=== PATIENT | male | born 1970 | race Caucasian/White ===

== ENCOUNTER 2018-03-23 20:16 | Emergency (ER) | payer MEDICAID, OTHER ==
[~2018-03-23] VITALS: Ht 172.7 cm; Wt 117.9 kg
[2018-03-23 20:21] VITALS: BP 137/98
--- NOTE | 2018-03-23 20:23 | NUR ---
PT AMBULATORY TO ER LOBBY IN STABLE CONDITION.
--- NOTE | 2018-03-23 20:54 | NUR ---
PT TAKEN TO BED 12
--- NOTE | 2018-03-23 20:55 | NUR ---
PT BIB SELF FOR CONGESTION FEVER AND CHILLS. PT STATES HE HAS PRODUCTIVE COUGH. BL BS CLEAR THROUGH OUT, RR EVEN AND UNLABORED. PT LAYING IN BED, FAMILY AT BEDSIDE.
--- NOTE | 2018-03-23 21:31 | NUR ---
Dr. Valentine evaluating patient at bedside.
[2018-03-23] MEDS ORDERED: PHENYLEPHRINE 0.5% 15 ML BTL NS ONE (22:00)
--- NOTE | 2018-03-23 22:39 | NUR ---
Patient discharged with v/s stable. Written and verbal after care instructions given and explained. Patient alert, oriented and verbalized understanding of instructions. Ambulatory with steady gait. All questions addressed prior to discharge. ID band removed. Patient advised to follow up with PMD. Rx of PREDNISONE AND AZITHROMYCIN given. Patient educated on indication of medication including possible reaction and side effects. Opportunity to ask questions provided and answered.
[2018-03-23 22:40] VITALS: BP 133/79
== END 2018-03-23 22:39 | disposition home or self-care (01) ==
LOC: MED 20:16
DX: J20.9 Acute bronchitis, unspecified (principal); Z88.6 Allergy status to analgesic agent
CPT/HCPCS: 71045; 99283; Q0092

== ENCOUNTER 2019-06-17 13:03 | Emergency (ER) | payer MEDICAID ==
[~2019-06-17] VITALS: Ht 172.7 cm; Wt 130.8 kg
[2019-06-17 13:10] VITALS: BP 153/86
[2019-06-17] MEDS ORDERED: LIDOCAINE/EPI 1% 1:100000 20 ML VIAL INJ ONE (13:20)
--- NOTE | 2019-06-17 13:27 | NUR ---
C/O PAIN TO NODULE VS POSSIBLE ABSCESS BEHIND RIGHT EAR WORSE OVER LAST 3 DAYS---- DENIES INJURY
--- NOTE | 2019-06-17 13:28 | NUR ---
L&D TRAY AND LIDOCAINE AT BEDSIDE
[2019-06-17] MEDS ORDERED: CEPHALEXIN 500 MG CAP PO ONE (14:00)
[2019-06-17] MEDS ORDERED: SULFAMETH/TRIMETH DS 800/160MG 1 TAB PO ONE (14:00)
[2019-06-17] MEDS ORDERED: BACITRACIN OINT 500 UNITS/GM PKT TP ONE (14:00)
[2019-06-17 14:29] VITALS: BP 142/88
--- NOTE | 2019-06-17 14:30 | NUR ---
Patient discharged with v/s stable. Written and verbal after care instructions given and explained. Patient verbalized understanding. Ambulatory with steady gait. All questions addressed prior to discharge. Advised to follow up with PMD.
== END 2019-06-17 14:30 | disposition home or self-care (01) ==
LOC: MED 13:03
DX: L02.811 Cutaneous abscess of head [any part, except face] (principal); Z88.5 Allergy status to narcotic agent
CPT/HCPCS: 10060; 99284; J2001; 10061; 99283

== ENCOUNTER 2019-07-28 16:46 | Emergency (ER) | payer MEDICAID ==
[~2019-07-28] VITALS: Ht 172.7 cm; Wt 127.0 kg
[2019-07-28 16:51] VITALS: BP 153/98
--- NOTE | 2019-07-28 17:03 | NUR ---
PT AMBULATED TO ED BED 02
--- NOTE | 2019-07-28 17:16 | NUR ---
49/M BIB FAMILY C/O REDNESS, PAIN & SWELLING BEHAIND RIGHT EAR X 1 MONTH. SEEN HERE 06/17/19 SAME S/S & HAD I&D. PATIENT STATES PAIN OF 01/18 AT THIS TIME.
[2019-07-28] MEDS ORDERED: LIDOCAINE MPF 1% 10 MG/ML VIAL INJ ONE (17:45)
--- NOTE | 2019-07-28 18:20 | NUR ---
I&D TO BACK OF R EAR DONE BY HUSSAIN SEE. PT TOLERATED PROCEDER WELL.
[2019-07-28 18:50] VITALS: BP 134/89
--- NOTE | 2019-07-28 18:50 | NUR ---
Patient discharged with v/s stable. Written and verbal after care instructions given and explained. Patient alert, oriented and verbalized understanding of instructions. Ambulatory with steady gait. All questions addressed prior to discharge. ID band removed. Patient advised to follow up with PMD. Rx of IBUPROFEN &KEFLEX given. Patient educated on indication of medication including possible reaction and side effects. Opportunity to ask questions provided and answered.
== END 2019-07-28 18:50 | disposition home or self-care (01) ==
LOC: MED 16:46
DX: L02.11 Cutaneous abscess of neck (principal); Z88.5 Allergy status to narcotic agent
CPT/HCPCS: 10060; 99283; J2001

== ENCOUNTER 2019-07-30 17:56 | Emergency (ER) | payer MEDICAID ==
[~2019-07-30] VITALS: Ht 172.7 cm; Wt 122.5 kg
[2019-07-30 18:29] VITALS: BP 143/87
--- NOTE | 2019-07-30 18:37 | NUR ---
PT S/P RT SIDE OF NECK ABSCESS I&D; PT HERE FOR PACKING CHANGE AND WOUND CHECK. STATES PAIN HAS DECREASED SUBSTANTIALLY SINCE I&D. STATES DRAINAGE OF DARK BURGUNDY FLUID FROM SITE. UNSURE IF ODOR PRESENT. DENIES F/C. HX--DENIES RX--NONE
== END 2019-07-30 18:45 | disposition home or self-care (01) ==
LOC: MED 17:56
DX: Z48.01 Encounter for change or removal of surgical wound dressing (principal); Z88.5 Allergy status to narcotic agent
CPT/HCPCS: 99281